=== PATIENT | male | born 1990 | race Caucasian/White ===

== ENCOUNTER 2017-03-12 09:00 | Emergency (ER) | payer OTHER ==
[2017-03-12 09:06] VITALS: RESP 18; TEMP 98.2
[2017-03-12] MEDS ORDERED: TETANUS, DIPHTHERIA TOX (7YR+) 0.5 ML INJ IM ONE (09:22)
[2017-03-12] MEDS ORDERED: IBUPROFEN 200 MG TAB PO ONE ×2 (09:33→09:34)
[2017-03-12] MEDS ORDERED: ceFAZolin 1 GM in NS 100 ML IV ONE (09:43)
[2017-03-12] MEDS ORDERED: CEFAZOLIN 1 GM/DEXTROSE/50 ML BAG IV ONE (09:47)
--- NOTE | 2017-03-12 09:51 | EDPHY ---
H & P Smoking Status: Never smoked Time Seen by Provider: 03/12/17 09:44 HPI/ROS: HPI: Mr. florence is a 26 yr, male who presents with Chief Complaint: Left wrist laceration Location: Left wrist Quality: Laceration Duration: 30 minutes prior to arrival Signs and Symptoms: Positive bleeding, no radiation, no weakness, positive pain , no numbness Timing: Acute Severity: 05/08 Context: Right hand dominant. Tetanus not up-to-date. Injury occurred at work. Patient was using a valve grinder and accidentally slipped and hit the ulnar aspect of his left wrist. Modifying Factors: Direct pressure Comment: ROS: Eyes: No blurred vision Respiratory: No shortness of breath, no cough Cardiovascular: No chest pain Gastrointestinal: No nausea, no vomiting no diarrhea Genitourinary: No dysuria Extremities: No myalgias Neurologic: No weakness, no numbness Skin: No rashes Hematologic: No bruising, no bleeding MEDICAL/SURGICAL HISTORY: Generally healthy. 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 (Ines Mcdonnell) Physical Exam: CONSTITUTIONAL: Polite young adult white male, awake and alert, moderate distress distress HEENT: Atraumatic and normocephalic, PERRL, EOMI. Tympanic membranes clear. Oropharynx clear, no exudate and moist pink mucosa. Airway patent. No lymphadenopathy. No meningismus. Cardiovascular: Normal S1/S2, regular rate, regular rhythm, without murmur rub or gallop. PULMONARY/CHEST: Symmetrical and nontender. Clear to auscultation bilaterally Good air movement. No accessory muscle usage. ABDOMEN: Soft, nondistended, nontender, no rebound, no guarding, no peritoneal signs, no masses or organomegaly. No CVAT. EXTREMITIES: 2/2 radial pulses, left wrist ulnar aspect, deep linear laceration approximately 2 inches in length and 1 inch deep, tendon is difficult to view but appears to be intact, wrist has full flexion/ extension/ rotation. 5 fingers on the left hand light touch sensation intact. 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 no clubbing, no cyanosis or edema. NEUROLOGICAL: no focal neuro deficits. GCS 15. SKIN: Warm and dry. Good capillary refill. (Ines Mcdonnell) Constitutional: Initial Vital Signs Temperature (C) 36.8 C 03/12/17 09:05 Heart Rate 88 03/12/17 09:05 Respiratory Rate 18 03/12/17 09:05 Blood Pressure 137/95 H 03/12/17 09:05 O2 Sat (%) 98 03/12/17 09:05 O2 Delivery Mode Room Air Allergies/Adverse Reactions: Pertussis Vaccines Allergy (Verified 03/12/17 09:04) Home Medications: Medication Instructions Recorded Cephalexin [Keflex (*)] 500 mg PO TID #30 cap 03/12/17 Hydrocodone/APAP 5/325 [[place] 1 - 2 tab PO Q6H PRN #20 tab 03/12/17 5/325 (*)] Medical Decision Making ED Course/Re-evaluation: Wound explored after irrigation of 2 L of normal saline with removal of small metal shards from briner Tetanus booster, 4 mg IV morphine and 1 g Ancef given Once laceration was repaired 0 form for by for the Kerlix and then a volar wrist splint was applied. Spoke with Hand Surgery, Dr. Rojo, that patient appears to be neurovascularly intact but there is still concern of flexor carpi ulnaris tendon involved involvement. Dr. Drummond recommends 10 days of Keflex 500 mg 3 times daily placed patient in a wrist splint and follow up with her in the office outpatient within 1 week. Procedure: Laceration repair. Verbal consent was obtained from the patient. The complex, deep laceration on the left wrist ulnar aspect 2 inches in length was anesthetized in the usual fashion. The wound was irrigated, draped and explored to its base with a gloved finger. There were no deep structures involved. No tendon injury was identified. The wound was repaired with #12, 4-0 Prolene in a simple interrupted pattern. Good hemostasis and the patient tolerated the procedure well. The procedure was performed by myself. (Ines Mcdonnell) Differential Diagnosis: Differential includes nerve injury, tendon injury, contusion, laceration, , fracture. (Ines Mcdonnell) Other Provider: I evaluated and participated in the management of the patient. My co-signature indicates that I have reviewed this chart and I agree with thefindings and plan of care as documented. My personal H&P findings include: 26 year old male with significant laceration on ulnar side of left wrist. ON exam, concern for tendon involvement. Neurovascularly intact and with normal motor function. DW Hand surgeon accreditation specialist, Dr Rojo. Will irrigate, provide antibiotics, close wound, splint and refer for follow up with Dr Rojo. Patient aware of the need for close follow up. (Bing Quiros) - Data Points Medications Given: Discontinued Medications Cefazolin Sodium 1 gm/ Sodium (Chloride) 100 mls @ 400 mls/hr IV EDNOW ONE PRN Reason: Protocol Stop: 03/12/17 09:57 Last Admin: 03/12/17 09:55 Dose: 100 mls Ibuprofen (Motrin) 800 mg PO EDNOW ONE Stop: 03/12/17 09:35 Last Admin: 03/12/17 09:35 Dose: 800 mg Morphine Sulfate (Morphine) 4 mg IVP EDNOW ONE Stop: 03/12/17 09:44 Last Admin: 03/12/17 09:54 Dose: 4 mg Tetanus/Diphtheria Toxoids Adsorbed (Tetanus-Diphtheria Grifols) 0.5 ml IM .ONCE ONE Stop: 03/12/17 09:23 Last Admin: 03/12/17 09:27 Dose: 0.5 ml Departure - Departure Disposition: Home, Routine, Self-Care Clinical Impression: Laceration of left wrist with tendon involvement Qualifiers: Encounter type: initial encounter Qualified Code(s): S61.512A - Laceration without foreign body of left wrist, initial encounter; S66.922A - Laceration of unspecified muscle, fascia and tendon at wrist and hand level, left hand, initial encounter Condition: Good Instructions: Laceration (ED), Tendon Laceration (ED) Referrals: Tiffany Rojo MD [Medical Doctor] - 5-7 days, call for appt. Prescriptions: Cephalexin [Keflex (*)] 500 mg PO TID #30 cap Hydrocodone/APAP 5/325 [[place] 5/325 (*)] 1 - 2 tab PO Q6H PRN #20 tab PRN Reason: Pain, Moderate
[2017-03-12 11:26] VITALS: BP 144/69; PULSE 86; O2SAT 94
== END 2017-03-12 11:25 | disposition home or self-care (01) ==
PROC: 0HQEXZZ Repair Left Lower Arm Skin, External Approach (ICD-10-PCS; principal; 2017-03-12)
DX: S66.922A Laceration of unspecified muscle, fascia and tendon at wrist and hand level, left hand, initial encounter (principal); Z23 Encounter for immunization; W22.8XXA Striking against or struck by other objects, initial encounter; Y92.69 Other specified industrial and construction area as the place of occurrence of the external cause; Y99.0 Civilian activity done for income or pay
CPT/HCPCS: 96374; J0690